=== PATIENT | male | born 1990 | race Caucasian/White ===

== ENCOUNTER → 2024-11-09 | Outpatient (CLI) | payer OTHER, SELFPAY ==
--- NOTE | 2024-11-09 18:25 | CT_ITS ---
PROCEDURE: SINUS/FACIAL BONE 11/09/2024 REASON FOR EXAM: CHRONIC SINUSITIS TECHNIQUE: SINUS/FACIAL BONE Coronal and Sagittal reconstruction series were provided. One or more dose reduction techniques were used (e.g., Automated exposure control, adjustment of the mA and/or kV according to patient size, use of iterative reconstruction technique). RADIATION DOSE SUMMARY: CTDlvol: 33.06 mGy DLP: 966.08 mGycm COMPARISON: None FINDINGS: Frontal: Minimal mucosal thickening Ethmoid: Moderate mucosal thickening Sphenoid: Minimal mucosal thickening Maxillary: Minimal mucosal thickening, [id number]-left Turbinates: Ostiomeatal complexes are patent though narrowed, no nhung bullosa noted. Nasal Septum: No significant nasal septal deviation Mastoids/Middle Ears: Patent CT/Sinus/Facial Bone IMPRESSION: Sunshine paranasal sinusitis without ostiomeatal complex obstruction No significant nasal septal deviation No suspicious osseous lesion Reading Location: [id number]
== END | disposition home or self-care (01) ==
PROVIDERS: Referring Provider Otolaryngology; Visit Provider Otolaryngology
DX: J32.8 Other chronic sinusitis (principal)
CPT/HCPCS: 70486